=== PATIENT | male | born 1970 | race Caucasian/White ===

== ENCOUNTER 2023-02-10 00:16 | Emergency (ER) | payer SELFPAY ==
[~2023-02-10] VITALS: Ht 165.1 cm; Wt 81.6 kg
--- NOTE | 2023-02-10 00:19 | NUR ---
SHANNON ZHAO TO BED #8
[2023-02-10 00:20] VITALS: BP 124/76; PULSE 96; RESP 18; TEMP 97.4; O2SAT 99
--- NOTE | 2023-02-10 00:33 | NUR ---
DR GAN AT BEDSIDE
--- NOTE | 2023-02-10 00:33 | NUR ---
52 YO M BIBA +ETOH. PT ON BEDSIDE CUSTOMER SUPPORT TECHNICIAN. NO COMPLAINTS OF PAIN AND NO S/S OF DISTRESS AT THIS TIME. PT WAS FOUND ON GRASS BY APARTMENT COMPLEX. RESPIRATIONS EVEN AND UNLABORED. NKDA NO MED HX
--- NOTE | 2023-02-10 00:59 | NUR ---
ROAD TESTED PATIENT. GAIT UNSTEADY. DR SEO AWARE. WILL RE-ROAD TEST PATIENT PRIOR TO DISCHARGE.
--- NOTE | 2023-02-10 01:33 | NUR ---
Pt was road tested, able to ambulate with gait steady. awake and oriented x 4 at this time. denies discomfort or pain.
--- NOTE | 2023-02-10 01:33 | NUR ---
Patient discharged with v/s stable. Written and verbal after care instructions given and explained. Patient verbalized understanding. Ambulatory with steady gait. All questions addressed prior to discharge. Advised to follow up with PMD.
[2023-02-10 01:34] VITALS: BP 125/81; PULSE 94; RESP 20; TEMP 97.4; O2SAT 96
== END 2023-02-10 01:33 | disposition home or self-care (01) ==
LOC: MED 00:16
DX: F10.129 Alcohol abuse with intoxication, unspecified (principal); Y90.9 Presence of alcohol in blood, level not specified
CPT/HCPCS: 99283